=== PATIENT | male | born 1980 | race Hispanic/Latino ===

== ENCOUNTER 2022-03-28 11:20 | Emergency (ER) | payer OTHER ==
[2022-03-28] MEDS ORDERED: Ketorolac Tromethamine 60 MG/2 ML VIAL ONE (13:19)
[2022-03-28] MEDS ORDERED: Orphenadrine Citrate 60 MG/2 ML VIAL ONE (13:31)
== END 2022-03-28 14:07 | disposition home or self-care (01) ==
LOC: NAV ERS 11:20
DX: M54.42 Lumbago with sciatica, left side (principal); E11.9 Type 2 diabetes mellitus without complications; E03.9 Hypothyroidism, unspecified; E78.00 Pure hypercholesterolemia, unspecified; Z79.4 Long term (current) use of insulin; Z79.899 Other long term (current) drug therapy
CPT/HCPCS: 96372; 99283; J1885; J2360